=== PATIENT | male | born 1960 | race Caucasian/White ===

== ENCOUNTER 2019-03-09 14:45 | Emergency (ER) | payer OTHER ==
[~2019-03-09] VITALS: Ht 182.9 cm; Wt 135.1 kg
[~2019-03-09 14:45] MED LIST: AMLO1CAP6 PO
--- NOTE | 2019-03-09 14:57 | NUR ---
Pt reports sinus congestion x 10 days. Onset of gen malaise, cough, fever/chills 4 days ago.
[2019-03-09] MEDS ORDERED: IBUPROFEN 800 MG TABLET PO ONE (15:00)
[2019-03-09] MEDS ORDERED: IBUPROFEN 800 MG TABLET ONE (15:01)
--- NOTE | 2019-03-09 15:14 | NUR ---
PT. IS A & O X 4 WITH C/O FEVER, CHILLS, SINUS PAIN AND PRESSURE WELL A COUGH. LUNGS ARE CTA. MM ARE PINK AND MOIST WITH PULSES +2 THROUGHOUT. PT. WAS MEDICATED FOR FEVER ORDERED. PT. IS RESTING WITH THE HOB ELEVATED. EKG AND PCXR ORDERED.
[2019-03-09] MEDS ORDERED: ACETAMINOPHEN 500 MG TABLET ONE (15:21)
[2019-03-09] MEDS ORDERED: ACETAMINOPHEN 500 MG TABLET PO ONE (15:30)
--- NOTE | 2019-03-09 17:11 | NUR ---
PT.'S FEVER IS DOWN FROM EARLIER. PT. WAS GIVEN DISCHARGE INSTRUCTIONS WITH UNDERSTANDING VERBALIZED ALONG WITH WILLINGNESS TO COMPLY. PT. WAS AMBULATORY TO THE DISCHARGE DESK WITH A STEADY GAIT.
[2019-03-09 17:17] VITALS: BP 125/78
== END 2019-03-09 17:19 | disposition home or self-care (01) ==
LOC: ED 17:00
DX: J01.00 Acute maxillary sinusitis, unspecified (principal); J01.10 Acute frontal sinusitis, unspecified; I10 Essential (primary) hypertension
CPT/HCPCS: 71045; 93005; 99283